=== PATIENT | male | born 1970 | race Caucasian/White ===

== ENCOUNTER 2018-09-21 08:53 | Emergency (ER) | payer OTHER ==
[~2018-09-21] VITALS: Ht 182.9 cm; Wt 104.3 kg
[~2018-09-21 08:53] MED LIST: ADVIL100 M2 PO; AUGMENTIN 875875 MG PO; HYDROCODONE-AP1 EAC6 PO; IBUPROFEN 800800 M1 PO; NOHOMEMEDICATIONS; RABAVERT IM; [UNRECOGNIZED DRUG - OTHER] IM
[2018-09-21 08:58] VITALS: BP 145/86
[2018-09-21] MEDS ORDERED: NORVASC2.5 MG PO (09:01)
[2018-09-21] MEDS ORDERED: LIPITOR10 MG PO (09:01)
[2018-09-21] MEDS ORDERED: ALLOPURINOL 10100 M1 PO (09:02)
[2018-09-21] MEDS ORDERED: XYOSTED100 MG/0.5 SUBQ (09:02)
[2018-09-21] MEDS ORDERED: [UNRECOGNIZED DRUG - REMARK] PO (09:03)
[2018-09-21] MEDS ORDERED: ULTRAM 50MG TAB50 MG PO (09:24)
== END 2018-09-21 09:37 | disposition home or self-care (01) ==
LOC: M.ERS 08:53
DX: S86.812A Strain of other muscle(s) and tendon(s) at lower leg level, left leg, initial encounter (principal); W17.89XA Other fall from one level to another, initial encounter; Y93.39 Activity, other involving climbing, rappelling and jumping off; Y92.89 Other specified places as the place of occurrence of the external cause; Y99.0 Civilian activity done for income or pay